=== PATIENT | female | born 1960 | race African-American/Black ===

== ENCOUNTER 2024-05-15 16:55 | Emergency (ER) | payer BC, OTHER ==
[2024-05-15 17:22] VITALS: BP 128/66; PULSE 77; RESP 18; TEMP 97.9; BMI 29.2
[2024-05-15 17:25] LABS: HEMATOCRIT 31.6 % (32.4-45.2); HEMOGLOBIN 10.2 G/dL (10.7-15.3); MCH 26.6 pg (25.7-33.7); MCHC 32.2 g/dl (32.0-36.0); MEAN CELL VOLUME 82.4 fl (80-96); MEAN PLT VOLUME 7.4 fl (7.5-11.1); RBC 3.83 10^6/uL (3.60-5.2); WHITE BLOOD COUNT 6.9 10^3/uL (4.0-10.8)
[2024-05-15 17:27] LABS: PLATELET ESTIMATE ADEQUATE
[2024-05-15 17:51] LABS: ALBUMIN 3.6 g/dl (3.4-5.0); ALK PHOS 128 U/L (45-117); ANION GAP 9 mmol/L (4-13); BILIRUBIN,TOTAL 1.9 mg/dl (0.2-1); CHLORIDE 102 mmol/L (98-107); CO2 27 mmol/L (21-32); CREATININE 0.7 mg/dl (0.6-1.3); GLUCOSE,RANDOM 110 mg/dl (74-106); SGOT/AST 36 U/L (15-37); SGPT/ALT 34 U/L (7-52); SODIUM 138 mmol/L (136-145); TOT PROT 6.6 g/dl (6.4-8.2)
[2024-05-15 19:42] LABS: MAGNESIUM 1.6 mg/dL (1.8-2.4)
[2024-05-15] MEDS ORDERED: MAGNESIUM 1GM/D5W - 1 GM/100 ML IVPB IVPB ONE (19:57)
[2024-05-15] MEDS: MAGNESIUM 1GM/D5W 100ML - 100 ML IVPB IVPB STA (20:04)
[2024-05-15] MEDS ORDERED: ACETAMINOPHEN INJECTION 100 ML IVPB ONE (20:33)
[2024-05-15] MEDS: ACETAMINOPHEN 1000 MG/100 ML BAG IVPB ONE (20:36)
[2024-05-15] MEDS ORDERED: POTASSIUM CHLORIDE TABS 20 MEQ TABLET.ER (FP) PO ONE (21:47)
[2024-05-15] MEDS: POTASSIUM CHLORIDE TABS 20 MEQ TABLET.ER (FP) PO ONE (21:54)
== END 2024-05-15 21:53 | disposition home or self-care (01) ==
LOC: FER 16:55
PROC: 3E033NZ Introduction of Analgesics, Hypnotics, Sedatives into Peripheral Vein, Percutaneous Approach (ICD-10-PCS; principal; 2024-05-15)
PROC: 3E033GC Introduction of Other Therapeutic Substance into Peripheral Vein, Percutaneous Approach (ICD-10-PCS; 2024-05-15)
DX: R18.0 Malignant ascites (principal)
CPT/HCPCS: 36415; 74018-TC-FY; 74177-TC; 80053; 83735; 85027; 99285-25; J0131; Q9967